=== PATIENT | male | born 1995 | race Caucasian/White ===

== ENCOUNTER 2017-12-02 22:21 | Inpatient (IN) | payer MEDICARE, MEDICAID, SELFPAY ==
[2017-12-03 00:30] LABS: HEMATOCRIT 46.7 % (42.0-52.0); HEMOGLOBIN 16.5 g/dl (13.5-17.5); MEAN CORPUSCULAR HGB CONC 35.3 g/dl (32.0-36.5); MEAN CORPUSCULAR VOLUME 87.6 fl (80.0-96.0); PLATELET COUNT, AUTOMATED 252 10^3/uL (150-450); RED BLOOD COUNT 5.33 10^6/uL (4.30-6.10)
[2017-12-03 00:47] LABS: AMPHETAMINES LEVEL URINE NEGATIVE (NEGATIVE); BARBITURATES URINE NEGATIVE (NEGATIVE); BENZODIAZEPINES URINE NEGATIVE (NEGATIVE); CANNABINOIDS URINE POSITIVE (NEGATIVE); COCAINE METABOLITE URINE NEGATIVE (NEGATIVE); METHADONE URINE NEGATIVE (NEGATIVE); OPIATES URINE NEGATIVE (NEGATIVE); PHENCYCLIDINE URINE NEGATIVE (NEGATIVE)
[2017-12-03 00:54] LABS: ALBUMIN 4.7 GM/DL (3.2-5.2); ALBUMIN/GLOBULIN RATIO 1.31 (1.00-1.93); ALKALINE PHOSPHATASE 134 U/L (45-117); ALT/SGPT 29 U/L (12-78); ANION GAP 11 MEQ/L (8-16); AST/SGOT 28 U/L (7-37); BILIRUBIN,DIRECT 0.5 MG/DL (0.0-0.2); BILIRUBIN,TOTAL 2.7 MG/DL (0.2-1.0); BLOOD UREA NITROGEN 23 MG/DL (7-18); CALCIUM LEVEL 9.5 MG/DL (8.5-10.1); CARBON DIOXIDE LEVEL 24 MEQ/L (21-32); CHLORIDE LEVEL 102 MEQ/L (98-107); CREATININE FOR GFR 0.96 MG/DL (0.70-1.30); ETHYL ALCOHOL (ETHANOL) < 0.003 % (0.000-0.010); GLOMERULAR FILTRATION RATE > 60.0 (>60); GLUCOSE, FASTING 64 MG/DL (70-100); POTASSIUM SERUM 4.3 MEQ/L (3.5-5.1); SALICYLATE LEVEL < 1.7 MG/DL (5.0-30.0); SODIUM LEVEL 137 MEQ/L (136-145); TOTAL PROTEIN 8.3 GM/DL (6.4-8.2)
[2017-12-03 00:57] LABS: ACETAMINOPHEN LEVEL < 2.0 UG/ML (10.0-30.0)
[2017-12-03 02:10] LABS: AMMONIA 26 uMOL/L (<32)
[2017-12-03] MEDS ORDERED: IBUPROFEN 400 MG TAB PO (02:45)
[2017-12-03] MEDS ORDERED: MAALOX 30 ML SUSP *UDC PO (02:45)
[2017-12-03] MEDS ORDERED: MOM 30ML SUSPENSION UDC PO (02:45)
[2017-12-03] MEDS ORDERED: ACETAMINOPHEN TAB 650MG DOSE (2X325MG) PO (02:45)
[2017-12-03] MEDS: risperiDONE 1 MG TAB PO ×2 (13:53→20:11)
[2017-12-04] MEDS: INFLUENZA QUADRIVALENT PF VACCINE 0.5ML SYRINGE (90686) IM (08:30)
[2017-12-04] MEDS: risperiDONE 1 MG TAB PO ×2 (08:30→20:14)
[2017-12-04] MEDS: PALIPERIDONE PALMITATE 234 MG/1.5 ML INJ (INVEGA SUSTENNA)(J2426) IM (11:09)
[2017-12-05] MEDS: risperiDONE 1 MG TAB PO ×2 (08:40→20:28)
[2017-12-05 13:41] LABS: ALBUMIN 3.8 GM/DL (3.2-5.2); ALBUMIN/GLOBULIN RATIO 1.19 (1.00-1.93); ALKALINE PHOSPHATASE 105 U/L (45-117); ALT/SGPT 27 U/L (12-78); ANION GAP 6 MEQ/L (8-16); AST/SGOT 19 U/L (7-37); BILIRUBIN,TOTAL 0.6 MG/DL (0.2-1.0); BLOOD UREA NITROGEN 12 MG/DL (7-18); CALCIUM LEVEL 8.9 MG/DL (8.5-10.1); CARBON DIOXIDE LEVEL 26 MEQ/L (21-32); CHLORIDE LEVEL 111 MEQ/L (98-107); CREATININE FOR GFR 0.88 MG/DL (0.70-1.30); GLOMERULAR FILTRATION RATE > 60.0 (>60); GLUCOSE, FASTING 114 MG/DL (70-100); POTASSIUM SERUM 3.9 MEQ/L (3.5-5.1); SODIUM LEVEL 143 MEQ/L (136-145)
[2017-12-05 14:18] LABS: HEPATITIS B SURFACE ANTIGEN NEGATIVE (NEGATIVE)
[2017-12-05 14:46] LABS: HEPATITIS B CORE ANTIBODY IGM NEGATIVE (NEGATIVE)
[2017-12-05 14:48] LABS: HEPATITIS A ANTIBODY IGM NEGATIVE (NEGATIVE)
[2017-12-06] MEDS: risperiDONE 1 MG TAB PO ×2 (08:37→20:00)
[2017-12-07] MEDS: risperiDONE 1 MG TAB PO (08:48)
[2017-12-07] MEDS ORDERED: diphenhydrAMINE 50 MG CAP PO (12:15)
[2017-12-07] MEDS: PALIPERIDONE PALMITATE 156 MG/1ML INJ(INVEGA SUSTENNA)(J2426) IM (12:54)
[2017-12-08] MEDS ORDERED: PALIPERIDONE PALMITATE 156 MG/1ML INJ(INVEGA SUSTENNA)(J2426) IM (09:00)
[2018-01-06] MEDS ORDERED: PALIPERIDONE PALMITATE 156 MG/1ML INJ(INVEGA SUSTENNA)(J2426) IM (09:00)
[2018-01-06] MEDS ORDERED: PALIPERIDONE PALMITATE 234 MG/1.5 ML INJ (INVEGA SUSTENNA)(J2426) IM (09:00)
== END 2017-12-07 14:58 | disposition home or self-care (01) | DRG 885 ==
LOC: M ED 22:21 → M ED INP 12-03 02:45 → M PSY 12-03 04:45
DX: F25.9 Schizoaffective disorder, unspecified (principal); R45.851 Suicidal ideations; F12.90 Cannabis use, unspecified, uncomplicated; F17.210 Nicotine dependence, cigarettes, uncomplicated; M54.5 Low back pain; G47.00 Insomnia, unspecified; F41.9 Anxiety disorder, unspecified; M41.9 Scoliosis, unspecified

== ENCOUNTER 2021-01-26 14:18 | Inpatient (IN) | payer MEDICARE, MEDICAID ==
[~2021-01-26] VITALS: Ht 180.3 cm; Wt 77.2 kg
[~2021-01-26 14:18] MED LIST: ABIL400I IM; DEPA500T2 PO; DIPH25CA32 PO; INVE156I IM; KLON0.5T PO; RISP1TAB42 PO
[2021-01-26 15:53] LABS: HEMATOCRIT 49.7 % (42.0-52.0); MEAN CORPUSCULAR HEMOGLOBIN 29.8 pg (27.0-33.0); MEAN CORPUSCULAR HGB CONC 34.2 g/dl (32.0-36.5); PLATELET COUNT, AUTOMATED 257 10^3/uL (150-450); RED BLOOD COUNT 5.71 10^6/uL (4.30-6.10); WHITE BLOOD COUNT 12.2 10^3/uL (4.0-10.0)
[2021-01-26 16:20] LABS: AMPHETAMINES LEVEL URINE POSITIVE (NEGATIVE); BARBITURATES URINE NEGATIVE (NEGATIVE); BENZODIAZEPINES URINE NEGATIVE (NEGATIVE); CANNABINOIDS URINE POSITIVE (NEGATIVE); COCAINE METABOLITE URINE NEGATIVE (NEGATIVE); METHADONE URINE NEGATIVE (NEGATIVE); OPIATES URINE NEGATIVE (NEGATIVE); PHENCYCLIDINE URINE NEGATIVE (NEGATIVE)
[2021-01-26 16:33] LABS: ACETAMINOPHEN LEVEL < 2.0 UG/ML (10.0-30.0); ALBUMIN 4.4 GM/DL (3.2-5.2); ALT/SGPT 25 U/L (12-78); BILIRUBIN,DIRECT 0.4 MG/DL (0.0-0.2); BILIRUBIN,TOTAL 1.6 MG/DL (0.2-1.0); BLOOD UREA NITROGEN 18 MG/DL (7-18); CALCIUM LEVEL 9.6 MG/DL (8.5-10.1); CARBON DIOXIDE LEVEL 26 MEQ/L (21-32); CHLORIDE LEVEL 108 MEQ/L (98-107); CREATININE FOR GFR 0.85 MG/DL (0.70-1.30); ETHYL ALCOHOL (ETHANOL) < 0.003 % (0.000-0.010); GLOMERULAR FILTRATION RATE > 60.0 (>60); GLUCOSE, FASTING 85 MG/DL (70-100); POTASSIUM SERUM 4.2 MEQ/L (3.5-5.1); SALICYLATE LEVEL < 1.7 MG/DL (5.0-30.0); SODIUM LEVEL 139 MEQ/L (136-145); TOTAL PROTEIN 7.9 GM/DL (6.4-8.2)
[2021-01-26] MEDS ORDERED: risperiDONE 1 MG TAB PO ONE (20:55)
[2021-01-26] MEDS ORDERED: risperiDONE 2 MG TAB PO ONE (21:25)
[2021-01-26] MEDS ORDERED: haloperidoL 5 MG TAB PO PRN (22:20)
[2021-01-26] MEDS ORDERED: LORazepam 1 MG TAB PO PRN (22:20)
[2021-01-26] MEDS ORDERED: MOM 30ML SUSPENSION UDC PO PRN (22:20)
[2021-01-26] MEDS ORDERED: MAALOX 30 ML SUSP *UDC PO PRN (22:20)
[2021-01-26] MEDS ORDERED: ACETAMINOPHEN TAB 650MG DOSE (2X325MG) PO PRN (22:20)
[2021-01-26] MEDS ORDERED: NICOTINE 21MG/24HR 1 EA TRANSDERMAL TD PRN (22:20)
[2021-01-26 23:27] LABS: RSV AMPLIFICATION NEGATIVE (NEGATIVE)
[2021-01-27 00:02] VITALS: BP 110/64
[2021-01-27] MEDS ORDERED: risperiDONE 1 MG TAB PO SCH (09:00)
[2021-01-27] MEDS ORDERED: BENZ0.5T23 PO (09:19)
[2021-01-27] MEDS ORDERED: VITA100T28 PO (09:19)
[2021-01-27] MEDS ORDERED: DIVA500T9 PO (09:19)
[2021-01-27] MEDS ORDERED: RISP-9 PO (09:19)
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
--- NOTE | 2021-01-27 11:10 | MHHPEPDOC ---
General Date Of Admission: Jan 26, 2021 Legal Status: 9.39 Chief Complaint "[I was freaking out because somebody stole my SSI money]. History of Present Illness HISTORY OF THE PRESENT ILLNESS: Patient is a 25 -year-old , male, who [who apparently has a past psychiatric history, brought to emergency room after he became quite angry and agitated with paranoid ideas that someone stole his SSI money. Patient denied any command hallucination and denies any suicidal or homicidal thoughts, but was very anxious and restless, claiming that somebody stole his SSI money and admitted on 9:39 status. On examination, patient is somewhat pressured but is in good control.. He stated that he was very upset and angry when he found SSI money was missing from his benefit card and initially suspected his sisters friend to be responsible and apparently was angry and agitated but stated that he is in control now and does not feel as upset and has no thoughts of hurting anybody. He is superficially denies any substance abuse issues and claims that he is been taking his medicine and has no new complaints and feels] that he is safe to go back home. He is denying any command hallucination and denies any seriously depressed of mood and denies any lethality issues.. Psychiatric Review of Systems Depression (2 or more weeks): denies Jeanna (4 or more days of): denies Psychosis: paranoia, other (does not feel paranoid anymore and feels safe) PTSD: denies Anxiety: situational anxiety, stressor related anxiety Past Psychiatric History Previous Psychiatric Diagnosis: . Does not know what diagnosis she carries Previous Psychiatric Admissions: . Denies any previous inpatient treatment Suicide Attempts: . Denies any suicidal attempt Psychiatric Follow-up: . Attending outpatient therapy Psychiatric medications: . Was taking risperidone Past Medical History Medical Problems Denies any medical problem Head Injury: No Seizures: No Hospitalizations: No Surgeries: No Family Medical/Psychiatric HX Medical Problems Noncontributory Psychiatric Disorders: No Addiction: No Suicide Attemps/Completions: No Addiction History amphetamines (tox screen shows a positive amphetamine), other (. Smokes pot occasionally. Also initial tox screen shows positive amphetamine) Social History Childhood: . Uneventful childhood Abuse/Trauma:[Denies any history of abuse]. Current Living Situation: [Lived with his sister]. Education: Dropped out of high school. Employment: . On SSI Social Support: . Sister Legal: . Denies any legal history denies any history of violence Marital: ., Single Mental Status Examination General Appearance: appears stated age Build: average Demeanor: average, very figety Eye Contact: average Activity: average, anxious Behavior: cooperative, impulsive, restless Speech: rapid, pressured, normal volume, impoverished Mood: anxious Mood Reports feeling angry and upset, but reports feeling better now and denies any serious depression Affect: labile, anxious Thought Process: logical/linear Thought Content (Delusions): paranoia Thought Content (Other): none reported Thought Content (Aggressive): none reported Perception (Hallucinations): none reported Perception (Other): none reported Cognition (Impairment of): none reported Cognition(Intelligence Est.): borderline Oriented: Awake, Alert, Oriented times three Insight: fair Judgment: Fair Psychosis: Denies Diagnoses Adjustment disorder with mixed emotion, borderline intelligence. Amphetamine- induced paranoid episode. A-FIB/CHADSVASC A-FIB History Current/History of A-Fib/PAF?: No Current PO Anticoag Therapy: No Age/Risk Factor Scoring CHADSVASC: CHADSVASC Response (Comments) Value Gender Risk Factor Male 0 Hx of CHF No 0 Hx of HTN No 0 Hx of Stroke/TIA/or VTE No 0 Hx of Diabetes No 0 Hx of Vascular Disease No 0 Total 0 Treatment Treatment ordered: NONE Assessment Doesn't appear to be acutely delusional or paranoid and patient strongly denies any command hallucination or delusional thinking. He is denying any suicidal or homicidal thoughts and has no history of violence and currently in good control. He may have history of paranoia for which he is taking risperidone, but cur rently is not showing any acute psychotic symptoms and denies any lethality issues. The review of initial lab shows patient is positive tox screen for amphetamine and cannabis which could explain the episode of paranoia and agitation. We will observe with the risperidone for any persistent paranoid ideas for lethality issues. Initial Treatment Plan 1. Patient was admitted on a 9.39 status. 2. Complete history was obtained. 3. With patients permission, family will be contacted and database will be expanded. 4. Patients medication regimen will be reviewed and changed accordingly. 5. Patient will be provided with protected environment. 6. Patient will be treated with individual, group, and milieu therapies. 7. Patient will receive supportive psych-education. 8. Discharge planning will commence immediately. 9. Outpatient follow-up treatment will be strongly recommended. 10. The initial treatment plan will focus initially on: * Depression. * Risk for suicide. ESTIMATED LENGTH OF STAY: 2-3 DAYS. If the patient remains a stable with no more paranoid symptoms. We will discharge today. Remains a stable TIME SPENT COUNSELING AND COORDINATING INITIAL CARE: 40 minutes. Tobacco Cessation Screen If Patient is a Smoker Nonsmoker Complete/Results docum. Vital Signs Vital Signs Date Time Temp Pulse Resp B/P (MAP) Pulse Ox O2 Delivery O2 Flow Rate FiO2 01/27/21 00:02 97.6 89 16 110/64 (79) 96 Room Air Laboratory Data 24H Labs Laboratory Tests 2 01/26/21 15:42: Nucleated Red Blood Cells % (auto) 0.0, Anion Gap 5L, Glomerular Filtration Rate > 60.0, Calcium Level 9.6, Total Bilirubin 1.6H, Direct Bilirubin 0.4H, Aspartate Amino Transf (AST/SGOT) 24, Alanine Aminotransferase (ALT/SGPT) 25, Alkaline Phosphatase 133H, Total Protein 7.9, Albumin 4.4, Albumin/Globulin Ratio 1.3, Thyroid Stimulating Hormone (TSH) 1.000, Salicylates Level < 1.7L, Urine Opiates Screen NEGATIVE, Urine Methadone Screen NEGATIVE, Acetaminophen Level < 2.0L, Urine Barbiturates Screen NEGATIVE, Urine Phencyclidine Screen NEGATIVE, Urine Amphetamines Screen POSITIVEH, Urine Benzodiazepines Screen NEGATIVE, Urine Cocaine Metabolite Screen NEGATIVE, Urine Cannabinoids Screen POSITIVEH, Ethyl Alcohol Level < 0.003 01/26/21 22:41: Coronavirus (COVID-19)(PCR) NEGATIVE, Influenza Type A (RT-PCR) NEGATIVE, Influ duy Type B (RT-PCR) NEGATIVE, Respiratory Syncytial Virus (PCR) NEGATIVE CBC/BMP Laboratory Tests 01/26/21 15:42 Medications Scheduled Benztropine Mesylate (Benztropine Mesylate) 0.5 Mg Tablet, 0.5 MG PO BID for ., (Reported) Divalproex Sodium (Divalproex Sodium ER) 500 Mg Tab.er.24h, 500 MG PO BID for ., (Reported) Risperidone (Risperidone) 2 Mg Tablet, 2 MG PO BID for ., (Reported) Thiamine Mononitrate (Vit B1) (Vitamin B-1) 100 Mg Tablet, 100 MG PO DAILY for ., (Reported) Allergies Coded Allergies: POLLEN (Verified Allergy, Unknown, 12/02/17) TREES (Verified Allergy, Unknown, 12/02/17) INESSA CHEN M.D. Jan 27, 2021 11:10
[2021-01-27 16:17] VITALS: BP 124/64
--- NOTE | 2021-01-27 19:56 | HPEPDOC ---
General Date of Admission Jan 26, 2021 at 22:16 Date of Service: Jan 27, 2021 Chief Complaint The patient is a 25-year-old male admitted with a reason for visit of Unspecified Psychotic Disorder. Source: Patient History of Present Illness Patient is 25 years old male without significant medical history presented hospital with acute psychosis. He was brought to emergency room after he became quite angry and agitated with paranoid ideas that someone stole his SSI money. Patient denied any command hallucination and denies any suicidal or homicidal thoughts, but was very anxious and restless. During my interview patient denied chest pain, shortness of breath, abdominal pain, diarrhea or dysuria Home Medications Scheduled Benztropine Mesylate (Benztropine Mesylate) 0.5 Mg Tablet, 0.5 MG PO BID for ., (Reported) Divalproex Sodium (Divalproex Sodium ER) 500 Mg Tab.er.24h, 500 MG PO BID for ., (Reported) Risperidone (Risperidone) 2 Mg Tablet, 2 MG PO BID for ., (Reported) Thiamine Mononitrate (Vit B1) (Vitamin B-1) 100 Mg Tablet, 100 MG PO DAILY for ., (Reported) Allergies Coded Allergies: POLLEN (Verified Allergy, Unknown, 12/02/17) TREES (Verified Allergy, Unknown, 12/02/17) Past Medical History Medical History No past medical history Social History * Smoker: current smoker Alcohol: occationally Drugs: marijuana A-FIB/CHADSVASC A-FIB History Current/History of A-Fib/PAF?: No Current PO Anticoag Therapy: No Age/Risk Factor Scoring CHADSVASC: CHADSVASC Response (Comments) Value Gender Risk Factor Male 0 Hx of CHF No 0 Hx of HTN No 0 Hx of Stroke/TIA/or VTE No 0 Hx of Diabetes No 0 Hx of Vascular Disease No 0 Total 0 Review of Systems Constitutional: Denies: Chills Eyes: Denies: Pain ENT: Denies: Head Aches Skin: Denies: Rash, Lesions Pulmonary: Denies: Dyspnea Cardiovascular: Denies: Chest Pain Gastrointestinal: Denies: Nausea, Vomiting Genitourinary: Denies: Dysuria Hematologic: Denies: Bruising Endocrine: Denies: Polydipsia Musculoskeletal: Denies: Neck Pain Neurological: Denies: Weakness Psych: Denies: Anger Physical Examination General Exam: Positive: Alert, Cooperative Eye Exam: Positive: PERRLA ENT Exam: Positive: Atraumatic Neck Exam: Positive: Supple; Negative: JVD Chest Exam: Positive: Clear to auscultation Heart Exam: Positive: Rate Normal Telemetry: Positive: No significant arrhythmia Abdomen Exam: Negative: Normal bowel sounds Extremity Exam: Negative: Clubbing Skin Exam: Positive: Nl turgor and temperature Neuro Exam: Positive: Normal Gait Psych Exam: Positive: Oriented x 3 Vital Signs Vital Signs Date Time Temp Pulse Resp B/P (MAP) Pulse Ox O2 Delivery O2 Flow Rate FiO2 01/27/21 16:17 98.6 79 17 124/64 (84) 99 Room Air Laboratory Data Labs 24H Laboratory Tests 2 01/26/21 22:41: Coronavirus (COVID-19)(PCR) NEGATIVE, Influenza Type A (RT-PCR) NEGATIVE, Influenza Type B (RT-PCR) NEGATIVE, Respiratory Syncytial Virus (PCR) NEGATIVE Assessment/Plan Patient is 25 years old male without significant medical history presented hospital with acute psychosis. He was brought to emergency room after he became quite angry and agitated with paranoid ideas that someone stole his SSI money. Patient denied any command hallucination and denies any suicidal or homicidal thoughts, but was very anxious and restless. During my interview patient denied chest pain, shortness of breath, abdominal pain, diarrhea or dysuria Problems (1) Psychosis Status: Acute Problem Text: Defer treatment to psych team Plan / VTE VTE Prophylaxis Ordered?: No VTE Exclusion Mechanical Proph: Low Risk for VTE NITIN BRAR DO Jan 27, 2021 19:56
[2021-01-27] MEDS: risperiDONE 2 MG TAB PO SCH (20:15)
[2021-01-28 06:02] VITALS: BP 135/63
[2021-01-28] MEDS: LORazepam 1 MG TAB PO SCH ×3 (08:35→20:07)
[2021-01-28] MEDS: risperiDONE 2 MG TAB PO SCH ×2 (08:35→20:07)
--- NOTE | 2021-01-28 10:47 | MHIPNPDOC ---
[facility] Progress Note Progress Note DATE OF SERVICE: 01/28/21 The patient was up last night and inpatient and frequently loud and somewhat agitated. This morning is still very anxious, restless, and not able to give any coherent response. He is pacing and is very restless, unable to sit still and cooperate with the interview. He did cooperate with his medicine of risperidone, but not showing much improvement. His admission labs, CBC and CMP is unremarkable, but his testing positive for amphetamine and cannabis. He appears highly anxious and restless and needs stabilization HISTORY: . VITAL SIGNS: See below. NEW TEST RESULTS: . CURRENT MEDICATIONS: See below. MENTAL STATUS EXAMINATION: Patient is a 25-year old male, who is , very restless, unable to cooperate. Speech: Is , pressured, scattered. Language skills are poor. Thought processes including: Fragmented loose. Thought content: Markedly paranoid. Abstract reasoning, and computation: poor. Description of associations: , Disorganized. Description of abnormal or psychotic thoughts: Paranoid thoughts. Denies any command hallucination. Judgment: poor. Insight: very poor. Orientation: , Oriented to place. Recent and remote memory: poor. Attention span and concentration: poor. Language: . Fund of knowledge: . Mood: Anxious, irritable . Affect: , Preoccupied, labile. DIAGNOSES: 1. . Psychotic disorder, NOS 2. . Amphetamine abuse 3. . ASSESSMENT:No improvement remained very restless] MANAGEMENT PLAN: Needs stabilization increase the risperidone given Ativan 1 mg 3 times a day and supportive therapy . TIME SPENT: [20] minutes. Vital Signs Vital Signs Date Time Temp Pulse Resp B/P (MAP) Pulse Ox O2 Delivery O2 Flow Rate FiO2 01/28/21 06:02 98.2 88 20 135/63 (87) 97 Room Air Current Medications Current Medications Medications (Trade) Dose Ordered Sig/Roma Route PRN Reason Start Time Stop Time Status Last Admin Dose Admin Acetaminophen (Tylenol Tab) 650 mg Q6HP PRN PO HEADACHE or MILD DISCOMFORT 01/26/21 22:20 Al Hydrox/Mg Hydrox/Simethicone (Mylanta) 30 ml Q4HP PRN PO HEARTBURN/INDIGESTION 01/26/21 22:20 Haloperidol (Haldol) 5 mg Q6HP PRN PO ANXIETY/AGITATION 01/26/21 22:20 Home Med (Med Rec Complete!) ASDIRECTED XX 01/27/21 09:20 01/27/21 09:31 DC Lorazepam (Ativan) 1 mg Q6HP PRN PO ANXIETY/AGITATION 01/26/21 22:20 Lorazepam (Ativan) 1 mg TID PO 01/28/21 09:00 01/28/21 08:35 Magnesium Hydroxide (Milk Of Magnesia) 30 ml DAILYPRN PRN PO CONSTIPATION 01/26/21 22:20 Nicotine (Nicoderm Cq 21mg) 1 patch DAILY PRN TD NICOTINE WITHDRAWAL 01/26/21 22:20 Risperidone (RisperDAL) 1 mg DAILY PO 01/27/21 09:00 01/28/21 08:01 DC 01/27/21 10:49 Risperidone (RisperDAL) 2 mg QAM PO 01/28/21 09:00 01/28/21 08:35 Risperidone (RisperDAL) 2 mg QHS PO 01/27/21 21:00 01/27/21 20:15 Trazodone HCl (Desyrel) 50 mg QHSP PRN PO INSOMNIA 01/26/21 22:20 Allergies Coded Allergies: POLLEN (Verified Allergy, Unknown, 12/02/17) TREES (Verified Allergy, Unknown, 12/02/17) INESSA CHEN M.D. Jan 28, 2021 10:47
[2021-01-28 16:08] VITALS: BP 131/70
[2021-01-28] MEDS: traZODone 50 MG TAB PO PRN (20:08)
[2021-01-29 06:39] VITALS: BP 137/82
[2021-01-29] MEDS: LORazepam 1 MG TAB PO SCH ×3 (08:19→20:05)
[2021-01-29] MEDS: risperiDONE 2 MG TAB PO SCH ×2 (08:19→20:05)
--- NOTE | 2021-01-29 10:44 | MHIPNPDOC ---
[facility] Progress Note Progress Note DATE OF SERVICE: 01/29/21 Patient has cooperated with the increase the risperidone and showed some improvement. He slept through the night and was not restless or agitated and is in better control. On examination. His responses are more appropriate and not as pressured and more coherent. He stated that he is feeling better and is not as upset or angry and wants to go home. He is giving his sister's phone number and asking to contact the sister claiming that she wants him back home [place]. The M.D. try to record the number, but no one answers and there is no voicemail available. We will try later to contact his sister to get collateral information. The patient is denying any hallucination or paranoia and denies any suicidal thoughts. HISTORY: . VITAL SIGNS: See below. NEW TEST RESULTS: . CURRENT MEDICATIONS: See below. MENTAL STATUS EXAMINATION: Patient is a 25-year old male, who is in better control. Speech: Is more relevant and coherent. Language skills are , fair. Thought processes including: Relevant . Thought content: , Denies any paranoia. Abstract reasoning, and computation: poor. Description of associations: , Better organized. Description of abnormal or psychotic thoughts: Denies any command hallucination and denies any paranoid fear. Judgment: Fair . Insight: fair]. Orientation: , Oriented to time and place. Recent and remote memory: Poor . Attention span and concentration: . Language: . Fund of knowledge: . Mood: , Not as angry, irritable and depressed. Affect: More animated and appropriate. DIAGNOSES: 1. ]. Psychotic disorder, NOS 2. . Amphetamine abuse 3. . ASSESSMENT:[Showing improved control and the behavior] MANAGEMENT PLAN: [Contact his sister for collateral information]. TIME SPENT: 20 minutes. Vital Signs Vital Signs Date Time Temp Pulse Resp B/P (MAP) Pulse Ox O2 Delivery O2 Flow Rate FiO2 01/29/21 08:41 Room Air 01/29/21 06:39 98.1 95 16 137/82 (100) 98 Current Medications Current Medications Medications (Trade) Dose Ordered Sig/Roma Route PRN Reason Start Time Stop Time Status Last Admin Dose Admin Acetaminophen (Tylenol Tab) 650 mg Q6HP PRN PO HEADACHE or MILD DISCOMFORT 01/26/21 22:20 Al Hydrox/Mg Hydrox/Simethicone (Mylanta) 30 ml Q4HP PRN PO HEARTBURN/INDIGESTION 01/26/21 22:20 Haloperidol (Haldol) 5 mg Q6HP PRN PO ANXIETY/AGITATION 01/26/21 22:20 Home Med (Med Rec Complete!) ASDIRECTED XX 01/27/21 09:20 01/27/21 09:31 DC Lorazepam (Ativan) 1 mg Q6HP PRN PO ANXIETY/AGITATION 01/26/21 22:20 Lorazepam (Ativan) 1 mg TID PO 01/28/21 09:00 01/29/21 08:19 Magnesium Hydroxide (Milk Of Magnesia) 30 ml DAILYPRN PRN PO CONSTIPATION 01/26/21 22:20 Nicotine (Nicoderm Cq 21mg) 1 patch DAILY PRN TD NICOTINE WITHDRAWAL 01/26/21 22:20 Risperidone (RisperDAL) 1 mg DAILY PO 01/27/21 09:00 01/28/21 08:01 DC 01/27/21 10:49 Risperidone (RisperDAL) 2 mg QAM PO 01/28/21 09:00 01/29/21 08:19 Risperidone (RisperDAL) 2 mg QHS PO 01/27/21 21:00 01/28/21 20:07 Trazodone HCl (Desyrel) 50 mg QHSP PRN PO INSOMNIA 01/26/21 22:20 01/28/21 20:08 Allergies Coded Allergies: POLLEN (Verified Allergy, Unknown, 12/02/17) TREES (Verified Allergy, Unknown, 12/02/17) INESSA CHEN M.D. Jan 29, 2021 10:44
[2021-01-29 19:03] VITALS: BP 143/63
[2021-01-29] MEDS: traZODone 50 MG TAB PO PRN (20:05)
[2021-01-30 06:00] VITALS: BP 135/76
[2021-01-30] MEDS: risperiDONE 2 MG TAB PO SCH (08:11)
[2021-01-30] MEDS: LORazepam 1 MG TAB PO SCH (08:11)
--- NOTE | 2021-01-30 10:27 | MHDSPDOC ---
[facility] Discharge Summary Discharge Summary DATE OF ADMISSION: Jan 26, 2021 at 22:16 DATE OF DISCHARGE: 01/30/2021 DISCHARGE DIAGNOSES: 1. . Psychotic disorder, NOS 2. . Amphetamine abuse REASON FOR ADMISSION: Patient was admitted due to increasing paranoid ideas that somebody stole his SSI money quite agitated but also testing positive for am phetamine. On tox screen. On admission, patient was extremely anxious, restless, paranoid and agitated but denied any command hallucination and didn't exhibit any aggressive or assaultive behavior CONSULTANTS INVOLVED: TREATMENT AND PROGRESS ON THE UNIT : The patient was seen for supportive therapy. Started back on risperidone 2 mg twice a day and Ativan 1 mg 3 times a day was given to control his agitation. Patient is fully cooperated with the medicine and showed marked reduction in agitation and paranoia. . HOSPITAL COURSE: After the first 2 days. Patient is much less anxious and not agitated anymore. He slept well. His eating good and is polite and pleasant and in good control. He is denying any more paranoid ideas and is not preoccupied with the idea that his SSI check was stolen. He is living with his sister and is asking us to contact his sister after talking to her, but the repeated phone call was not answered, and there was no voicemail system. Patient however has the address and his anxious to be discharged. The patient is not showing any dangerous behavior and his denying any lethality issues and is in good control without any gross psychotic symptoms and appears to be at his baseline mental status, and does not meet the criteria for involuntary retention, so we will discharge him to his address. DISCHARGE ASSESSMENT: , Stable and not a danger to himself or other people MENTAL STATUS EXAMINATION ON DISCHARGE: Patient is a 25]-year old male, who is in good control. Speech is simplistic but relevant, coherent. Language skills are fair. Thought processes including: Relevant. Thought content: . No gross delusional thinking. Abstract reasoning, and computation: fair. Description of associations: Relevant and coherent. Description of abnormal or psychotic thoughts: Denies any command hallucination. Denies any suicidal thoughts. Judgment: fair. Insight: fair. Orientation to , fully oriented. Recent and remote memory: fair. Attention span and concentration: . Language: . Fund of knowledge: . Mood: , Mildly anxious but not depressed. Affect: , Appropriate. MEDICATIONS ON DISCHARGE: - for ., No prescription was given. Patient is to continue his risperidone 2 mg twice a day - for . - for . PLAN/FOLLOWUP ARRANGEMENTS: To follow up with his current outpatient treatment. The amount of time spent in the coordination of care for this patient was approximately 35 minutes. ETOH/Disorder Med Rx ETOH/DRUG DISORDER RX: N/A Vital Signs/I&Os Vital Signs Date Time Temp Pulse Resp B/P (MAP) Pulse Ox O2 Delivery O2 Flow Rate FiO2 01/30/21 06:00 98.5 53 20 135/76 (95) 97 01/29/21 08:41 Room Air Medications Scheduled Benztropine Mesylate (Benztropine Mesylate) 0.5 Mg Tablet, 0.5 MG PO BID for ., (Reported) Risperidone (Risperidone) 2 Mg Tablet, 2 MG PO BID for ., (Reported) Thiamine Mononitrate (Vit B1) (Vitamin B-1) 100 Mg Tablet, 100 MG PO DAILY for ., (Reported) Allergies Coded Allergies: POLLEN (Verified Allergy, Unknown, 12/02/17) TREES (Verified Allergy, Unknown, 12/02/17) INESSA CHEN M.D. Jan 30, 2021 10:27
== END 2021-01-30 11:37 | disposition home or self-care (01) | DRG 885 ==
LOC: M ED 14:18 → M ED INP 22:16 → M PSY 23:50
PROVIDERS: ADMIT Psychiatry & Neurology Psychiatry; ATTEND Psychiatry & Neurology Psychiatry
DX: F29 Unspecified psychosis not due to a substance or known physiological condition (principal); F15.188 Other stimulant abuse with other stimulant-induced disorder; F43.25 Adjustment disorder with mixed disturbance of emotions and conduct; Z79.899 Other long term (current) drug therapy; Z20.822 Contact with and (suspected) exposure to COVID-19; F17.210 Nicotine dependence, cigarettes, uncomplicated

== ENCOUNTER 2023-04-08 20:33 | Inpatient (IN) | payer MEDICARE, MEDICAID ==
[~2023-04-08] VITALS: Ht 180.3 cm; Wt 86.3 kg
[~2023-04-08 20:33] MED LIST changes: +BENZ0.5T2 PO; +DIPH-435 PO; -DIPH25CA32 PO; +DIVA500T9 PO; +RISP-9 PO; +VITA100T28 PO
[2023-04-08 21:09] LABS: HEMATOCRIT 47.4 % (42.0-52.0); HEMOGLOBIN 16.2 g/dl (13.5-17.5); MEAN CORPUSCULAR HEMOGLOBIN 29.8 pg (27.0-33.0); MEAN CORPUSCULAR HGB CONC 34.2 g/dl (32.0-36.5); MEAN CORPUSCULAR VOLUME 87.3 fl (80.0-96.0); PLATELET COUNT, AUTOMATED 255 10^3/uL (150-450); RED BLOOD COUNT 5.43 10^6/uL (4.30-6.10); WHITE BLOOD COUNT 13.3 10^3/uL (4.0-10.0)
[2023-04-08 21:30] LABS: AMPHETAMINES LEVEL URINE NEGATIVE (NEGATIVE); BARBITURATES URINE NEGATIVE (NEGATIVE); COCAINE METABOLITE URINE NEGATIVE (NEGATIVE); METHADONE URINE NEGATIVE (NEGATIVE); OPIATES URINE NEGATIVE (NEGATIVE); PHENCYCLIDINE URINE NEGATIVE (NEGATIVE)
[2023-04-08 21:31] LABS: BENZODIAZEPINES URINE NEGATIVE (NEGATIVE)
[2023-04-08 21:33] LABS: CANNABINOIDS URINE POSITIVE (NEGATIVE); ETHYL ALCOHOL (ETHANOL) < 0.003 % (0.000-0.010)
[2023-04-08 21:34] LABS: ACETAMINOPHEN LEVEL < 2.0 UG/ML (10.0-20.0); ALBUMIN 4.5 G/DL (3.2-5.2); ALKALINE PHOSPHATASE 93 U/L (46-116); ALT/SGPT 41 U/L (7.0-40); AST/SGOT 28 U/L (<34); BILIRUBIN,DIRECT 0.4 MG/DL (<0.4); BILIRUBIN,TOTAL 1.1 MG/DL (0.3-1.2); BLOOD UREA NITROGEN 14 MG/DL (9-23); CALCIUM LEVEL 9.9 MG/DL (8.5-10.1); CARBON DIOXIDE LEVEL 25 MMOL/L (20-31); CHLORIDE LEVEL 106 MMOL/L (98-107); CREATININE FOR GFR 0.84 MG/DL (0.70-1.30); GLOMERULAR FILTRATION RATE > 60.0 (>60); GLUCOSE, FASTING 83 MG/DL (60-100); POTASSIUM SERUM 4.4 MMOL/L (3.5-5.1); SALICYLATE LEVEL < 3.0 MG/DL (<30); SODIUM LEVEL 141 MMOL/L (136-145); TOTAL PROTEIN 7.5 G/DL (5.7-8.2)
[2023-04-08 21:36] LABS: THYROID STIMULATING HORMONE 1.143 uIU/ML (0.55-4.78)
[2023-04-09] MEDS ORDERED: INVE234I SC (07:49)
[2023-04-10] MEDS ORDERED: HOME MED LIST COMPLETE! XX SCH (05:50)
[2023-04-12] MEDS ORDERED: MOM 30ML SUSPENSION UDC PO PRN (14:30)
[2023-04-12] MEDS ORDERED: IBUPROFEN 400MG TAB PO PRN (14:30)
[2023-04-12] MEDS ORDERED: MAALOX 30 ML SUSP *UDC PO PRN (14:30)
[2023-04-12] MEDS ORDERED: ACETAMINOPHEN TAB 650MG DOSE (2X325MG) PO PRN (14:30)
[2023-04-13 06:11] VITALS: BP 151/81; TEMP 97.1; O2SAT 99
[2023-04-13] MEDS: diphenhydrAMINE 25MG CAP PO PRN ×3 (06:29→21:55)
[2023-04-13] MEDS: risperiDONE 2 MG TAB PO SCH ×2 (11:17→21:55)
[2023-04-13] MEDS: NICOTINE 14 MG/24 HR TRANSDERMAL TD SCH (13:57)
[2023-04-13 18:36] VITALS: BP 141/72; TEMP 97.1; O2SAT 96
[2023-04-13] MEDS: traZODone 50 MG TAB PO PRN ×2 (21:51→21:55)
[2023-04-14 06:50] VITALS: BP 148/75; TEMP 96.8; O2SAT 97
[2023-04-14] MEDS: NICOTINE 14 MG/24 HR TRANSDERMAL TD SCH (09:00)
[2023-04-14] MEDS: risperiDONE 2 MG TAB PO SCH ×2 (09:00→21:37)
[2023-04-14] MEDS: traZODone 50 MG TAB PO PRN (21:37)
[2023-04-15 06:39] VITALS: BP 137/64; TEMP 98; O2SAT 98
[2023-04-15] MEDS: NICOTINE 14 MG/24 HR TRANSDERMAL TD SCH (09:00)
[2023-04-15] MEDS: risperiDONE 2 MG TAB PO SCH ×2 (09:33→20:30)
[2023-04-15] MEDS: traZODone 50 MG TAB PO PRN (20:30)
[2023-04-16 06:20] VITALS: BP 124/76; TEMP 96.6; O2SAT 97
[2023-04-16] MEDS: NICOTINE 14 MG/24 HR TRANSDERMAL TD SCH (09:00)
[2023-04-16] MEDS: risperiDONE 2 MG TAB PO SCH ×2 (09:25→20:42)
[2023-04-16 18:00] VITALS: BP 117/71; TEMP 98; O2SAT 99
[2023-04-16] MEDS: diphenhydrAMINE 25MG CAP PO PRN (18:23)
[2023-04-16] MEDS: traZODone 50 MG TAB PO PRN (20:42)
[2023-04-17 05:41] VITALS: BP 132/60; TEMP 98; O2SAT 100
[2023-04-17] MEDS: risperiDONE 2 MG TAB PO SCH ×2 (08:58→20:16)
[2023-04-17] MEDS: NICOTINE 14 MG/24 HR TRANSDERMAL TD SCH (08:59)
[2023-04-17 18:00] VITALS: BP 116/77; TEMP 98.1; O2SAT 99
[2023-04-17] MEDS: traZODone 50 MG TAB PO PRN (20:16)
[2023-04-18 06:41] VITALS: BP 141/76; TEMP 97.6; O2SAT 96
[2023-04-18] MEDS: NICOTINE 14 MG/24 HR TRANSDERMAL TD SCH (09:00)
[2023-04-18] MEDS: risperiDONE 2 MG TAB PO SCH ×2 (09:25→19:55)
[2023-04-18 16:15] VITALS: BP 127/77; TEMP 97.7; O2SAT 96
[2023-04-19 06:45] VITALS: BP 145/70; TEMP 98.9; O2SAT 97
[2023-04-19] MEDS: NICOTINE 14 MG/24 HR TRANSDERMAL TD SCH (09:00)
[2023-04-19] MEDS: risperiDONE 2 MG TAB PO SCH (09:02)
[2023-04-19] MEDS ORDERED: RISP-9 PO (10:24)
[2023-04-19] MEDS ORDERED: INVE234I SC (10:24)
[2023-04-19] MEDS ORDERED: TRAZ-252 PO (10:24)
[2023-04-19] MEDS ORDERED: NICO14PA TD (10:24)
== END 2023-04-19 13:55 | disposition home or self-care (01) | DRG 885 ==
LOC: M ED 20:33 → M ED INP 04-12 15:14 → M PSY 04-12 16:41
PROVIDERS: ADMIT Student in an Organized Health Care Education/Training Program; ATTEND Student in an Organized Health Care Education/Training Program
DX: F20.9 Schizophrenia, unspecified (principal); U07.1 COVID-19; R45.851 Suicidal ideations; F17.200 Nicotine dependence, unspecified, uncomplicated; F15.10 Other stimulant abuse, uncomplicated; Z79.899 Other long term (current) drug therapy; J30.1 Allergic rhinitis due to pollen; F12.10 Cannabis abuse, uncomplicated; R45.850 Homicidal ideations